=== PATIENT | female | born 1955 ===

== ENCOUNTER 2022-01-18 09:53 | Emergency (ER) | payer MEDICARE ==
--- NOTE | 2022-01-18 11:15 | XRay Report ---
CHEST 2 VIEWS INDICATION / CLINICAL INFORMATION: Chest pain and shortness of breath. COMPARISON: None available. FINDINGS: SUPPORT DEVICES: None. HEART / MEDIASTINUM: The heart size and pulmonary vasculature are normal. The aorta is normal in lupe nery. LUNGS / PLEURA: The lungs appear mildly hyperinflated, but are otherwise clear. No pleural abnormalit y. No pneumothorax. ADDITIONAL FINDINGS: Mild thoracolumbar scoliosis with moderate spondylosis. A moderate compression f racture in the lower thoracic spine is probably old. There are mild to moderate degenerative changes involving both glenohumeral joints. IMPRESSION: Possible emphysema. Signer Name: John Hsu MD Signed: 01/18/2022 11:10 AM Workstation Name: [id number]
--- NOTE | 2022-01-18 11:27 | Emergency Department Report ---
<MARIE SIMS - Last Filed: 01/18/22 14:45> ED Abdominal Pain HPI - General Chief Complaint: Abdominal Pain Stated Complaint: STOMACH PAIN Time Seen by Provider: 01/18/22 11:05 Source: patient Mode of arrival: Ambulatory Limitations: No Limitations - History of Present Illness Initial Comments: 66-year-old female who presents with abdominal pain has been going on for the last 2 weeks worsening at night disturbing sleep. Patient reports last bowel movement this morning and was normal. No fever or chills noted. Patient described this as being tightness in the abdomen at night. No chest pain or palpitation reported. She says she feels like her food is not being digested. Patient denies any history of diabetes. No other modifying or associated factors reported. MD Complaint: abdominal pain - Related Data Previous Rx's Medication Instructions Recorded Last Taken Type Omeprazole 40 mg PO DAILY 30 Days #30 cap 01/18/22 Unknown Rx Allergies Allergy/AdvReac Type Severity Reaction Status Date / Time No Known Allergies Allergy Unverified 01/18/22 10:26 ED Review of Systems Comment: All other systems reviewed and negative Cardiovascular: denies: chest pain, palpitations Gastrointestinal: abdominal pain. denies: nausea, vomiting, constipation ED Past Medical Hx - Past Medical History Previous Medical History?: No - Surgical History Past Surgical History?: No - Medications Home Medications: Home Medications Medication Instructions Recorded Confirmed Last Taken Type Omeprazole 40 mg PO DAILY 30 Days #30 cap 01/18/22 Unknown Rx ED Physical Exam - General Limitations: No Limitations General appearance: alert, in no apparent distress - Head Head exam: Present: normal inspection - Eye Eye exam: Present: normal appearance Pupils: Present: normal accommodation - ENT ENT exam: Present: normal exam, normal orophraynx, mucous membranes moist - Neck Neck exam: Present: normal inspection, full ROM. Absent: tenderness - Respiratory Respiratory exam: Present: normal lung sounds bilaterally. Absent: respiratory distress, accessory muscle use - Cardiovascular Cardiovascular Exam: Present: regular rate, normal rhythm, normal heart sounds - GI/Abdominal GI/Abdominal exam: Present: soft, tenderness (mild tenderness to palpation and diffused), normal bowel sounds. Absent: distended - Extremities Exam Extremities exam: Present: normal inspection, normal capillary refill. Absent: tenderness, pedal edema - Back Exam Back exam: Absent: tenderness - Neurological Exam Neurological exam: Present: alert, oriented X3 - Psychiatric Psychiatric exam: Present: normal affect, normal mood - Skin Skin exam: Present: warm, normal color ED Course - Reevaluation(s) Reevaluation #1: 01/18/22 14:[address] Reyes while waiting for other labs and the CT abd/pel imaging --Labs has been reviewed and noted with no significant abnormality ED Medical Decision Making - Lab Data Result diagrams: 01/18/22 11:36 01/18/22 11:36 - EKG Data -: EKG Interpreted by Ut EKG shows normal: sinus rhythm Rate: normal - EKG Data 01/18/22 11:27 Noted with normal sinus rhythm at a rate of [address] elevation or depression in this normal ECG. - Medical Decision Making Here with abdominal pain--differential could be but not limited to appendicitis, diverticulitis, cholecystitis, cholelithiasis, nephrolithiasis, gastritis, pancreatitis, duodenitis, colitis, irritable bowel syndrome, cystitis, so in order to rule this out we will go ahead and order routine acute abdomen that include CBC, CMP, urinalysis, and CT imaging of the abdomen/pelvic. Since patient any subjective pain at this time will hold on on given pain medication and follow the above labs and imaging-- ED Disposition Clinical Impression: GERD without esophagitis Abdominal pain Qualifiers: Abdominal location: generalized Qualified Code(s): R10.84 - Generalized abdominal pain Gastritis Qualifiers: Gastritis type: unspecified gastritis Chronicity: acute Gastritis bleeding: without bleeding Qualified Code(s): K29.00 - Acute gastritis without bleeding Disposition: 01 HOME / SELF CARE / HOMELESS Is pt being admited?: No Does the pt Need Aspirin: No Condition: Stable Instructions: Indigestion, Wmll-[id number], Gastritis, Adult, [id number], Food Choices for Gastroesophageal Reflux Disease, Adult, Abdominal Pain, Adult, Wore-hc-Facl, Abdominal Pain (ED) Additional Instructions: Patient to follow-up with primary care in 2 to 3 days. Patient to follow-up with gastroenterology in 2 to 3 days. Patient to rest. Patient to increase water. Patient to eat a reflux diet. Patient to take Tylenol As needed for pain. Patient to avoid NSAIDs. Patient to take meds as directed. Patient to return to the ER if condition worsens, changes or new symptoms arise. Prescriptions: Omeprazole 40 mg PO DAILY 30 Days #30 cap Referrals: MARQUEZ SALINAS MD [Primary Care Provider] - 2-3 Days MARGOT ROBERTSON MD [Staff Physician] - 2-3 Days <CHANCE POLANCO III - Last Filed: 01/19/22 00:21> ED Abdominal Pain HPI - General PUI?: No ED Review of Systems ROS: Stated complaint: STOMACH PAIN Other details as noted in HPI ED Past Medical Hx - Past Medical History Previous Medical History?: No - Surgical History Past Surgical History?: No - Family History Family history: no significant - Social History Smoking Status: Never Smoker Substance Use Type: None ED Physical Exam - General General appearance: alert, in no apparent distress - Head Head exam: Present: atraumatic, normocephalic - Eye Eye exam: Present: normal appearance - ENT ENT exam: Present: mucous membranes moist - Neck Neck exam: Present: normal inspection - Respiratory Respiratory exam: Present: normal lung sounds bilaterally. Absent: respiratory distress - Cardiovascular Cardiovascular Exam: Present: regular rate, normal rhythm. Absent: systolic murmur, diastolic murmur, rubs, gallop - GI/Abdominal GI/Abdominal exam: Present: soft, normal bowel sounds - Extremities Exam Extremities exam: Present: normal inspection - Back Exam Back exam: Present: normal inspection - Neurological Exam Neurological exam: Present: alert, oriented X3 - Psychiatric Psychiatric exam: Present: normal affect, normal mood - Skin Skin exam: Present: warm, dry, intact, normal color. Absent: rash ED Course Vital Signs 01/18/22 01/18/22 10:24 17:15 Temperature 98.0 F Pulse Rate 86 83 Respiratory 18 18 Rate Blood Pressure 157/73 124/81 [Left] O2 Sat by Pulse 99 98 Oximetry - Reevaluation(s) Reevaluation #2: Patient case signed out to me from previous physician. I assumed care. Patient reexamined and the patient's abdominal exam is negative. Patient denies pain at this time. Patient CT scan is pending. 01/18/22 15:02 Reevaluation #3: I discussed all results and clinical findings with patient. I discussed plan of care with patient. Patient agrees with plan of care. Patient is stable for discharge. Patient will be discharged home. Patient given discharge instru ctions. Patient voiced understanding of discharge instructions. 01/18/22 17:15 ED Medical Decision Making - Lab Data Result diagrams: 01/18/22 11:36 01/18/22 11:36 - EKG Data -: EKG Interpreted by Me EKG shows normal: sinus rhythm, axis, intervals, QRS complexes, ST-T waves Rate: normal - Radiology Data Radiology results: report reviewed CT ABDOMEN AND PELVIS WITH CONTRAST HISTORY: abd pain diffuse. COMPARISON: None. TECHNIQUE: CT images of the abdomen and pelvis were obtained following administration of intravenous contrast. All CT scans at this location are performed using CT dose reduction for ALARA by means of automated exposure control. CONTRAST: 100 ml of intravenous contrast administered. FINDINGS: Lungs/bones: Moderate scoliotic curvature of the lumbar spine with reversal of normal cervical lordosis in the upper lumbar spine and mild kyphosis centered at L1 where there is a chronic- appearing wedge deformity with roughly 50% height loss. Lung bases are clear. Degenerative changes in the spine and pelvis with no acute osseous abnormality. Abdomen/pelvis: A few tiny hepatic cysts are present. The liver otherwise appears unremarkable. The gallbladder, biliary tree, spleen, pancreas, right adrenal gland, and kidneys appear unremarkable. There is mild left adrenal nodularity with a nodule measuring 1.6 cm on axial image 36 of series 2 with attenuation of 103 Hounsfield units. Proximal GI tract is unremarkable. Urinary bladder is mildly distended but otherwise unremarkable. Reproductive organs are unremarkable with a few calcified fibroids in the uterus. No pelvic free fluid. No acute colonic abnormality identified. IMPRESSION: 1. No acute abnormality. 2. Indeterminate left adrenal nodule. Consider follow-up CT adrenal protocol as indicated nonemergently. CHEST 2 VIEWS INDICATION / CLINICAL INFORMATION: Chest pain and shortness of breath. COMPARISON: None available. FINDINGS: SUPPORT DEVICES: None. HEART / MEDIASTINUM: The heart size and pulmonary vasculature are normal. The aorta is normal in caliber. LUNGS / PLEURA: The lungs appear mildly hyperinflated, but are otherwise clear. No pleural abnormality. No pneumothorax. ADDITIONAL FINDINGS: Mild thoracolumbar scoliosis with moderate spondylosis. A moderate compression fracture in the lower thoracic spine is probably old. There are mild to moderate degenerative changes involving both glenohumeral joints. IMPRESSION: Possible emphysema. - Medical Decision Making Patient is a 66-year-old female who presents emergency room with generalized abdominal pain. Patient's case was initiated by a previous physician and signed out to me. Patient was signed out to me because of a pending CT scan. Patient had labs done which were essentially unremarkable. Patient CT showed no acute findings. I reexamined the patient and the patient's findings and symptoms are consistent with acid reflux. Patient will be treated with Meprazole. Patient does not require any further emergency medical service. Patient not require any inpatient services. Patient is stable for discharge. Patient be discharged home and given referral to a core java engineer and instructed to follow-up with her primary care as well. I discussed all results and clinical findings with patient. I discussed plan of care with patient. Patient agrees with plan of care. Patient is stable for discharge. Patient will be discharged home. Patient given discharge instructions. Patient voiced understanding of discharge instructions. - Differential Diagnosis Abdominal pain, acid reflux, UTI, gastritis, gastroenteritis, Critical care attestation.: If time is entered above; I have spent that time in minutes in the direct care of this critically ill patient, excluding procedure time. ED Disposition Is pt being admited?: No Does the pt Need Aspirin: No Time of Disposition: 17:19
[2022-01-18 12:55] LABS: Basophils % (Auto) 0.8 % (0.0-1.8); Eosinophils % (Auto) 0.4 % (0.0-4.3); Hematocrit 42.3 % (30.3-42.9); Hemoglobin 14.9 gm/dl (10.1-14.3); Lymphocytes # (Auto) 1.6 K/mm3 (1.2-5.4); Lymphocytes % (Auto) 27.6 % (13.4-35.0); Mean Corpuscular HGB Conc 35 % (30-34); Mean Corpuscular Volume 95 fl (79-97); Monocytes # (Auto) 0.5 K/mm3 (0.0-0.8); Platelet Count 224 K/mm3 (140-440); Red Blood Count 4.46 M/mm3 (3.65-5.03); Red Cell Distribution Width 13.6 % (13.2-15.2)
[2022-01-18 13:22] LABS: Alanine Aminotransferase 7 units/L (7-56); Albumin 4.3 g/dL (3.9-5); Blood Urea Nitrogen 7 mg/dL (7-17); Calcium 9.1 mg/dL (8.4-10.2); Hemolysis Index 4
[2022-01-18 13:42] LABS: BUN/Creatinine Ratio 14
[2022-01-18 13:43] LABS: INR 0.93 (0.87-1.13)
[2022-01-18 13:44] LABS: Partial Thromboplastin Time 36.7 Sec. (24.2-36.6)
--- NOTE | 2022-01-18 14:28 | Electrocardiograph Report ---
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
--- NOTE | 2022-01-18 17:10 | Cat Scan Report ---
CT ABDOMEN AND PELVIS WITH CONTRAST HISTORY: abd pain diffuse. COMPARISON: None. TECHNIQUE: CT images of the abdomen and pelvis were obtained following administration of intravenous contrast. All CT scans at this location are performed using CT dose reduction for ALARA by means of automated exposure control. CONTRAST: 100 ml of intravenous contrast administered. FINDINGS: Lungs/bones: Moderate scoliotic curvature of the lumbar spine with reversal of normal cervical lordo sis in the upper lumbar spine and mild kyphosis centered at L1 where there is a chronic-appearing wed ge deformity with roughly 50% height loss. Lung bases are clear. Degenerative changes in the spine an d pelvis with no acute osseous abnormality. Abdomen/pelvis: A few tiny hepatic cysts are present. The liver otherwise appears unremarkable. The gallbladder, biliary tree, spleen, pancreas, right adrenal gland, and kidneys appear unremarkable. Th ere is mild left adrenal nodularity with a nodule measuring 1.6 cm on axial image 36 of series 2 with attenuation of 103 Hounsfield units. Proximal GI tract is unremarkable. Urinary bladder is mildly distended but otherwise unremarkable. Reproductive organs are unremarkable with a few calcified fibroids in the uterus. No pelvic free fluid. No acute colonic abnormality ident ified. IMPRESSION: 1. No acute abnormality. 2. Indeterminate left adrenal nodule. Consider follow-up CT adrenal protocol as indicated nonemergent ly. Signer Name: Markus Silveira MD Signed: 01/18/2022 5:06 PM Workstation Name: [email or web address]
[2022-01-18 17:48] VITALS: BP 124/81
== END 2022-01-18 17:53 | disposition home or self-care (01) ==
LOC: ED 09:53
DX: K21.9 Gastro-esophageal reflux disease without esophagitis (principal); K29.70 Gastritis, unspecified, without bleeding; R10.9 Unspecified abdominal pain
CPT/HCPCS: 36415; 71046; 74177; 80053; 83690; 84484; 85025; 85610; 85730; 93005; 99284; Q9967